=== PATIENT | female | born 1960 | race Caucasian/White ===

== ENCOUNTER 2018-08-21 11:54 | Emergency (ER) | payer OTHER ==
[~2018-08-21] VITALS: Ht 149.9 cm; Wt 60.0 kg
[2018-08-21] MEDS ORDERED: SODIUM CHLORIDE 0.9% 1,000 ML IV ONE (12:32)
[2018-08-21] MEDS ORDERED: MORPHINE SULFATE 4 MG/ML CPJ (NOT FOR IM USE) IV STA (12:32)
[2018-08-21 12:44] LABS: BASOPHILS % 0.7 % (0.0-2.0); EOSINOPHILS % 0.6 % (0.0-5.0); HEMATOCRIT. 39.9 % (36.0-48.0); HEMOGLOBIN. 13.6 g/dL (12.0-16.0); LYMPHOCYTES % 37.5 % (20.0-50.0); MEAN CORPUSCULAR HEMOGLOBIN 29.1 pg (28.0-32.0); MEAN CORPUSCULAR VOLUME 85.4 fL (81.0-99.0); MEAN PLATELET VOLUME 9.1 fl (7.4-10.4); NEUTROPHILS % 56.2 % (40.0-76.0); PLATELET 282 x1000/uL (130-400); RED BLOOD CELL COUNT 4.67 mill/uL (4.2-5.4); RED CELL DISTRIBUTION WIDTH 13.2 % (11.6-14.6)
[2018-08-21 12:50] LABS: CHLORIDE 107 mEq/L (98-107)
[2018-08-21 12:56] LABS: PROTHROMBIN TIME 10.1 sec (9.6-11.0)
[2018-08-21] MEDS ORDERED: PROPOFOL 200MG/20ML VIAL IV ONE (14:00)
[2018-08-21] MEDS ORDERED: MORPHINE SULFATE 4 MG/ML CPJ (NOT FOR IM USE) IV ONE (14:30)
[2018-08-21 21:41] VITALS: BP 134/84
== END 2018-08-21 21:42 | disposition short-term general hospital (02) ==
LOC: ER 12:02
DX: S82.841A Displaced bimalleolar fracture of right lower leg, initial encounter for closed fracture (principal); W18.39XA Other fall on same level, initial encounter; Y93.89 Activity, other specified; Y92.89 Other specified places as the place of occurrence of the external cause; Y99.8 Other external cause status; Z88.2 Allergy status to sulfonamides
CPT/HCPCS: 27810; 36415; 73590; 73600; 73610; 73630; 80053; 85025; 85610; 93005; 96374; 96376; 99152; 99285; J2270; J2704; J7030